=== PATIENT | female | born 1970 | race Caucasian/White ===

== ENCOUNTER 2018-05-28 10:46 | Emergency (ER) | payer OTHER ==
[2018-05-28] MEDS ORDERED: Vancomycin 1 GM 1 GM/250 ML BAG IV STA (11:48)
[2018-05-28] MEDS ORDERED: Cefepime 1 GM in Sodium Chloride 0.9% 50 ML IVPB STA (11:48)
[2018-05-28 11:58] LABS: BASO # 0.1 K/uL (0.0-0.2); BASO % 1.2 % (0.0-2.0); EOS # 0.2 K/uL (0.0-0.7); EOS % 1.9 % (0.0-4.0); HEMOGLOBIN 15.2 g/dL (11.0-16.0); LYMPH # 1.9 K/uL (1.0-4.3); LYMPH % 16.9 % (20.0-40.0); MEAN CELL VOLUME 95.7 fL (81.0-99.0); MEAN CORPUSCULAR HEMOGLOBIN 32.6 pg (27.0-31.0); MEAN CORPUSCULAR HGB CONC 34.1 g/dL (33.0-37.0); MEAN PLATELET VOLUME 8.2 fL (7.2-11.7); MONO # 0.9 K/uL (0.0-0.8); MONO % 7.5 % (0.0-10.0); NEUT # 8.2 K/uL (1.8-7.0); NEUT % 72.5 % (50.0-75.0); RBC 4.64 Mil/uL (3.80-5.20); RED CELL DISTRIBUTION WIDTH 14.2 % (11.5-14.5); WHITE BLOOD COUNT 11.3 K/uL (4.8-10.8)
[2018-05-28 12:11] LABS: ALB/GLOB RATIO 1.5 (1.0-2.1); ALBUMIN 3.7 g/dL (3.5-5.0); ALT/SGPT 10 U/L (9-52); AST/SGOT 14 U/L (14-36); BLOOD UREA NITROGEN 13 mg/dL (7-17); CALCIUM 8.9 mg/dl (8.6-10.4); GFR NON-AFRICAN AMERICAN > 60
[2018-05-28] MEDS ORDERED: Vancomycin 1 GM 1 GM/250 ML BAG IVPB ONE (12:53)
--- NOTE | 2018-05-28 12:57 | RAD ---
Date of service: 05/28/2018 PROCEDURE: Left Index finger radiographs. HISTORY: LEFT 2ND DIGIT SWELLING, PAIN COMPARISON: None available. TECHNIQUE: AP radiograph of the left hand, as well as spot oblique and lateral images of index finger were obtained. FINDINGS: LEFT INDEX FINGER: Unremarkable left 2nd digit without acute displaced fracture identified. Remainder of the left hand (as seen on the AP view) grossly intact. JOINTS: No dislocation. SOFT TISSUES: Soft tissue swelling. No evidence of radiopaque foreign body. OTHER FINDINGS: None. IMPRESSION: Soft tissue swelling. No acute displaced fracture identified. If symptoms persist or if there is continued clinical concern, x-ray follow-up in 7-10 days should be considered.
--- NOTE | 2018-05-28 13:00 | C.PDOC ---
History Of Present Illness Patient presents to ED c/o pain, swelling to left 2nd digit since sustaining a laceration to the area on . She was seen by PMD on Monday, and given antibiotics (Keflex and Bactrim) without improvement. PMHX: psoriasis, COPD - (on prednisone daily). Time Seen by Provider: 05/28/18 11:07 Chief Complaint (Nursing): Finger,Hand,&Wrist History Per: Patient History/Exam Limitations: no limitations Onset/Duration Of Symptoms: Days (5) Current Symptoms Are (Timing): Still Present Quality: "Pain" Severity: Moderate Exacerbating Factor(s): Movement Past Medical History Reviewed: Historical Data, Nursing Documentation, Vital Signs - Medical History PMH: Asthma, COPD Other PMH: psoriasis Family History: States: No Known Family Hx - Social History Hx Alcohol Use: Yes Hx Substance Use: No - Immunization History Hx Tetanus Toxoid Vaccination: Yes Hx Influenza Vaccination: No Hx Pneumococcal Vaccination: No Review Of Systems Constitutional: Negative for: Fever, Chills Cardiovascular: Negative for: Chest Pain, Palpitations Respiratory: Negative for: Cough, Shortness of Breath Gastrointestinal: Negative for: Nausea, Vomiting, Abdominal Pain, Diarrhea Genitourinary: Negative for: Dysuria Musculoskeletal: Positive for: Other (left hand 2nd digit (pain and swelling)) Skin: Negative for: Rash Neurological: Negative for: Weakness, Numbness Physical Exam - Physical Exam Appears: Well, Non-toxic, In Acute Distress (in moderate pain) Skin: Other (see extremity exam) Head: Normacephalic Eye(s): bilateral: Normal Inspection Oral Mucosa: Moist Cardiovascular: Rhythm Regular Respiratory: Normal Breath Sounds, No Rales, No Rhonchi, No Wheezing Gastrointestinal/Abdominal: Normal Exam, Bowel Sounds, Soft, No Tenderness Extremity: No Normal ROM (decreased ability to extend at PIP joint left 2nd digit ), Tenderness ((+) TTP at left 2nd digit), Capillary Refill (< 2 sec all digits), Other (left 2nd digit - mild swelling and erythema at PIP joint, (+) TTP, in mild flexion) Neurological/Psych: Oriented x3, Normal Sensation ED Course And Treatment - Laboratory Results Result Diagrams: 05/28/18 11:54 05/28/18 11:54 Lab Results: Total Bilirubin 0.4 mg/dL (0.2-1.3) 05/28/18 11:54 AST 14 U/L (14-36) 05/28/18 11:54 ALT 10 U/L (9-52) 05/28/18 11:54 Alkaline Phosphatase 72 U/L (38-126) 05/28/18 11:54 Total Protein 6.2 g/dL (6.3-8.3) L 05/28/18 11:54 Albumin 3.7 g/dL (3.5-5.0) 05/28/18 11:54 Globulin 2.5 gm/dL (2.2-3.9) 05/28/18 11:54 Albumin/Globulin Ratio 1.5 (1.0-2.1) 05/28/18 11:54 O2 Sat by Pulse Oximetry: 95 (RA) Pulse Ox Interpretation: Normal Progress Note: Blood work, Xrays ordered and reviewed. Patient given IV Vancomycin and Cefepime. - Physician Consult Information Physician Contacted: Zeynep Martínez Outcome Of Conversation: Discussed patient with PMD, agrees with admission for failed outpatient treatment, left finger infection (possible tenosynovitis). Dr. Berg (hand surgeon) also spoken with and aware of consult. Disposition - Disposition Disposition: HOSPITALIZED Disposition Time: 12:37 Condition: STABLE Forms: [facility] ([place]) - Clinical Impression Clinical Impression: Failure of outpatient treatment, Cellulitis of finger of left hand Decision To Admit - Pt Status Changed To: Hospital Disposition Of: Inpatient - Admit Certification Admit to Inpatient:: After my assessment, the patient will require hospitalization for at least two midnights. This is because of the severity of symptoms shown, intensity of services needed, and/or the medical risk in this patient being treated as an outpatient. - InPatient: Physician Admission Certification: I certify that this patient requires 2 or more midnights of care for the following reason:: see notes - . Bed Request Type: Regular Admitting Physician: Zeynep Martínez Patient Diagnosis: Cellulitis of finger of left hand, Failure of outpatient treatment
[2018-05-28] MEDS ORDERED: Oxycodone/Acetaminophen 5/325 mg Tab PO STA (13:01)
[2018-05-28] MEDS ORDERED: Oxycodone/Acetaminophen 5/325 mg Tab ONE (13:06)
[2018-05-28 13:07] VITALS: BP 127/85; PULSE 67; RESP 18; TEMP 97.7; O2SAT 95
[2018-05-28 15:25] LABS: HCG,QUALITATIVE URINE NEGATIVE (NEGATIVE)
[2018-05-28 15:28] LABS: SQUAMOUS EPITHIAL 9 /hpf (0-5); URINE BACTERIA RARE (<OCC); URINE BILIRUBIN NEGATIVE (NEGATIVE); URINE CLARITY Hazy (Clear); URINE COLOR Yellow (YELLOW); URINE GLUCOSE (UA) NORMAL (Normal); URINE LEUKOCYTE ESTERASE TRACE Leu/uL (Negative); URINE PROTEIN NEGATIVE (NEGATIVE); URINE UROBILINOGEN NORMAL mg/dL (0.2-1.0)
[2018-05-28 15:32] LABS: URINE BLOOD NEGATIVE (NEGATIVE)
--- NOTE | 2018-05-28 15:50 | CP.PCM.CON ---
History of Present Illness - History of Present Illness History of Present Illness: Orthopedic hand consult: Dr. Berg Patient is a 47 y/o RHD female c/o L 2nd digit pain and swelling. She reports cutting the dorsal aspect of the PIP of her left 2nd digit with a knife while cutting raw chicken. She then washed the area and applied dry dressings. She then noticed progressive pain and swelling over the next 4 days radiating to her hand dorsally. She presented to her PMD, Dr. Martínez who recommended that the patient be admitted to [facility] for IV abx after failing oral abx. Currently her pain is moderate, dull and located at the dorsal aspect of her 2nd digit PIP. The pain radiates to her mid hand dorsally. She notes that she was unable to flex her finger and make a fist the last few days, however she is currently able to flex and make a fist. She admits to feeling feverish occasionally although she has never measured it. She currently denies numbness/tingling/CP/SOB/N/V/D/dysuria/melena. PMH: COPD, Psoriasis, migraines, chronic lower back pain PSH: none meds: Otezla, prednisone, percocet prn lower back pain allergy: egg SH: tobacco 1/2 ppd x >15 yrs, ETOH occasionally, marijuana occasionally Review of Systems - Review of Systems All systems: reviewed and no additional remarkable complaints except Review of Systems: as per HPI Past Patient History - Past Medical History & Family History Past Medical History?: Yes - Past Social History Smoking Status: Light Smoker < 10 Cigarettes Daily Alcohol: Occasional Drugs: Cannabis - CARDIAC Hx Cardiac Disorders: No - PULMONARY Hx Respiratory Disorders: Yes Hx Asthma: Yes Hx Chronic Obstructive Pulmonary Disease (COPD): Yes - NEUROLOGICAL Hx Neurological Disorder: No - HEENT Hx HEENT Problems: No - RENAL Hx Chronic Kidney Disease: No - ENDOCRINE/METABOLIC Hx Endocrine Disorders: No - HEMATOLOGICAL/ONCOLOGICAL Hx Blood Disorders: No - INTEGUMENTARY Hx Dermatological Problems: Yes Hx Psoriasis: Yes - MUSCULOSKELETAL/RHEUMATOLOGICAL Hx Musculoskeletal Disorders: No Hx Falls: No - GASTROINTESTINAL Hx Gastrointestinal Disorders: No - GENITOURINARY/GYNECOLOGICAL Hx Genitourinary Disorders: No - PSYCHIATRIC Hx Psychophysiologic Disorder: No Hx Substance Use: No - SURGICAL HISTORY Hx Surgeries: No - ANESTHESIA Hx Anesthesia: No Has any member of the family had a problem w/ anesthesia?: No Meds Allergies/Adverse Reactions: Allergies Allergy/AdvReac Type Severity Reaction Status Date / Time EGG Allergy Verified 05/28/18 17:38 Physical Exam - Constitutional Appears: Well, No Acute Distress - Head Exam Head Exam: ATRAUMATIC, NORMOCEPHALIC - Eye Exam Eye Exam: EOMI, Normal appearance - ENT Exam ENT Exam: Mucous Membranes Moist - Respiratory Exam Respiratory Exam: NORMAL BREATHING PATTERN - GI/Abdominal Exam GI & Abdominal Exam: Soft. absent: Tenderness - Extremities Exam Additional comments: L hand: mild swelling/erythema and warmth to PIP and proximal phalynx of 2nd digit able to flex 2nd DIP/PIP/MCP with pain lesion to dorsal PIP well healed no fluctuant mass or drainage sensation and motor intact MN/UN/RN radial pulse intact R hand: no swelling/erythema/drainage FROM sensation and motor intact MN/UN/RN radial pulse intact - Neurological Exam Neurological exam: Alert, Oriented x3 - Psychiatric Exam Psychiatric exam: Normal Affect, Normal Mood - Skin Skin Exam: Normal Color, Warm Results - Vital Signs Recent Vital Signs: Last Vital Signs Temp 97.7 F 05/28/18 13:07 Pulse 67 05/28/18 13:07 Resp 18 05/28/18 13:07 BP 127/85 05/28/18 13:07 Pulse Ox 95 05/28/18 13:14 - Labs Result Diagrams: 05/28/18 11:54 05/28/18 11:54 Labs: Laboratory Results - last 24 hr 05/28/18 05/28/18 05/28/18 11:54 11:54 15:07 WBC 11.3 H RBC 4.64 Hgb 15.2 Hct 44.4 MCV 95.7 MCH 32.6 H MCHC 34.1 RDW 14.2 Plt Count 226 MPV 8.2 Neut % (Auto) 72.5 Lymph % (Auto) 16.9 L [place] % (Auto) 7.5 Eos % (Auto) 1.9 Baso % (Auto) 1.2 Neut # (Auto) 8.2 H Lymph # (Auto) 1.9 [place] # (Auto) 0.9 H Eos # (Auto) 0.2 Baso # (Auto) 0.1 ESR 1 Sodium 137 Potassium 3.8 Chloride 103 Carbon Dioxide 29 Anion Gap 9 L BUN 13 Creatinine 0.6 L Est GFR ( Amer) > 60 Est GFR (Non-Af Amer) > 60 Random Glucose 106 H Calcium 8.9 Total Bilirubin 0.4 AST 14 ALT 10 Alkaline Phosphatase 72 Total Protein 6.2 L Albumin 3.7 Globulin 2.5 Albumin/Globulin Ratio 1.5 Urine Color Yellow Urine Clarity Hazy Urine pH 7.0 Ur Specific [place] 1.009 Urine Protein Negative Urine Glucose (UA) Normal Urine Ketones Negative Urine Blood Negative Urine Nitrate Negative Urine Bilirubin Negative Urine Urobilinogen Normal Ur Leukocyte Esterase Trace Urine WBC (Auto) 2 Urine RBC (Auto) 1 Ur Squamous Epith Cells 9 H Urine Bacteria Rare Urine HCG, Qual Negative - Impressions Impression: Accession No. : [id number] Patient Name / ID : ALISTAIR CABELLO / [id number] Exam Date : 05/28/2018 11:40:04 ( Approved ) Study Comment : Sex / Age : F / 47Y Creator : Angelika Clark MD Dictator : Angelika Clark MD Ui Developer With Angular Js : Chain Link Fence Installer : Angelika Clark MD Approver2 : Report Date : 05/28/2018 12:53:28 My Comment : Date of service: 05/28/2018 PROCEDURE: Left Index finger radiographs. HISTORY: LEFT 2ND DIGIT SWELLING, PAIN COMPARISON: None available. TECHNIQUE: AP radiograph of the left hand, as well as spot oblique and lateral images of index finger were obtained. FINDINGS: LEFT INDEX FINGER: Unremarkable left 2nd digit without acute displaced fracture identified. Remainder of the left hand (as seen on the AP view) grossly intact. JOINTS: No dislocation. SOFT TISSUES: Soft tissue swelling. No evidence of radiopaque foreign body. OTHER FINDINGS: None. IMPRESSION: Soft tissue swelling. No acute displaced fracture identified. If symptoms persist or if there is continued clinical concern, x-ray follow-up in 7-10 days should be considered. Assessment & Plan (1) Cellulitis of finger of left hand Assessment and Plan: L hand 2nd digit cellulitis -No acute orthopedic intervention recommended -continue IV abx as per medicine/ID -warm soaks QID -above d/w Dr. Berg in agreement Status: Acute
--- NOTE | 2018-05-28 16:01 | CP.PCM.HP ---
History of Present Illness - History of Present Illness History of Present Illness: PGY2 Medicine H+P for Dr. Martínez Past Patient History - Past Medical History & Family History Past Medical History?: Yes - Past Social History Smoking Status: Light Smoker < 10 Cigarettes Daily - CARDIAC Hx Cardiac Disorders: No - PULMONARY Hx Respiratory Disorders: Yes Hx Asthma: Yes Hx Chronic Obstructive Pulmonary Disease (COPD): Yes - NEUROLOGICAL Hx Neurological Disorder: No - HEENT Hx HEENT Problems: No - RENAL Hx Chronic Kidney Disease: No - ENDOCRINE/METABOLIC Hx Endocrine Disorders: No - HEMATOLOGICAL/ONCOLOGICAL Hx Blood Disorders: No - INTEGUMENTARY Hx Dermatological Problems: Yes Hx Psoriasis: Yes - MUSCULOSKELETAL/RHEUMATOLOGICAL Hx Musculoskeletal Disorders: No Hx Falls: No - GASTROINTESTINAL Hx Gastrointestinal Disorders: No - GENITOURINARY/GYNECOLOGICAL Hx Genitourinary Disorders: No - PSYCHIATRIC Hx Psychophysiologic Disorder: No Hx Substance Use: No - SURGICAL HISTORY Hx Surgeries: No - ANESTHESIA Hx Anesthesia: No Has any member of the family had a problem w/ anesthesia?: No Meds Allergies/Adverse Reactions: Allergies Allergy/AdvReac Type Severity Reaction Status Date / Time EGG Allergy Verified 05/28/18 10:59 Results - Vital Signs Recent Vital Signs: Last Vital Signs Temp 97.7 F 05/28/18 13:07 Pulse 67 05/28/18 13:07 Resp 18 05/28/18 13:07 BP 127/85 05/28/18 13:07 Pulse Ox 95 05/28/18 13:14 - Labs Result Diagrams: 05/28/18 11:54 05/28/18 11:54 Labs: Laboratory Results - last 24 hr 05/28/18 05/28/18 05/28/18 11:54 11:54 15:07 WBC 11.3 H RBC 4.64 Hgb 15.2 Hct 44.4 MCV 95.7 MCH 32.6 H MCHC 34.1 RDW 14.2 Plt Count 226 MPV 8.2 Neut % (Auto) 72.5 Lymph % (Auto) 16.9 L [place] % (Auto) 7.5 Eos % (Auto) 1.9 Baso % (Auto) 1.2 Neut # (Auto) 8.2 H Lymph # (Auto) 1.9 [place] # (Auto) 0.9 H Eos # (Auto) 0.2 Baso # (Auto) 0.1 ESR 1 Sodium 137 Potassium 3.8 Chloride 103 Carbon Dioxide 29 Anion Gap 9 L BUN 13 Creatinine 0.6 L Est GFR ( Amer) > 60 Est GFR (Non-Af Amer) > 60 Random Glucose 106 H Calcium 8.9 Total Bilirubin 0.4 AST 14 ALT 10 Alkaline Phosphatase 72 Total Protein 6.2 L Albumin 3.7 Globulin 2.5 Albumin/Globulin Ratio 1.5 Urine Color Yellow Urine Clarity Hazy Urine pH 7.0 Ur Specific [place] 1.009 Urine Protein Negative Urine Glucose (UA) Normal Urine Ketones Negative Urine Blood Negative Urine Nitrate Negative Urine Bilirubin Negative Urine Urobilinogen Normal Ur Leukocyte Esterase Trace Urine WBC (Auto) 2 Urine RBC (Auto) 1 Ur Squamous Epith Cells 9 H Urine Bacteria Rare Urine HCG, Qual Negative
== END 2018-05-28 16:24 | disposition short-term general hospital (02) ==
LOC: C.ER 10:46 → UNDOADMIN 12:37 → C.9E 12:37
DX: L03.012 Cellulitis of left finger (principal)
CPT/HCPCS: 73140; 80053; 81001; 84703; 85025; 85651; 87040; 96365; 96366; 96375; 99283; J0692; J1885; J3370

== ENCOUNTER 2018-05-28 17:15 | Emergency (ER) | payer OTHER ==
[2018-05-28 17:38] VITALS: BMI 20.9
[2018-05-28 17:48] VITALS: RESP 18
--- NOTE | 2018-05-28 18:10 | C.PDOC ---
History Of Present Illness 47 y/o female presents to the ER for evaluation of infection to left hand 2nd digit which has been present for the past 4 days. Patient states that she cut her finger with a meat angeline. Patient reports that she was evaluated by her PMD and she was started on abx. She notes that she was evaluated by her PMD today and her finger had swelling. She was seen in ER earlier today, however she left due to personal reasons. Denies having fever, chills, nausea, and vomiting. Time Seen by Provider: 05/28/18 18:08 Chief Complaint (Nursing): Upper Extremity Problem/Injury History Per: Patient History/Exam Limitations: no limitations Onset/Duration Of Symptoms: Days Current Symptoms Are (Timing): Still Present Severity: Moderate Past Medical History Reviewed: Historical Data, Nursing Documentation, Vital Signs Vital Signs: Last Vital Signs Temp 97.9 F 05/28/18 17:46 Pulse 75 05/28/18 17:46 Resp 18 05/28/18 17:46 BP Pulse Ox 98 05/28/18 17:46 - Medical History PMH: Asthma, COPD Denies: Chronic Kidney Disease Surgical History: No Surg Hx Family History: States: No Known Family Hx - Social History Hx Alcohol Use: No (social) Hx Substance Use: No - Immunization History Hx Tetanus Toxoid Vaccination: Yes Hx Influenza Vaccination: No Hx Pneumococcal Vaccination: No Review Of Systems Except As Marked, All Systems Reviewed And Found Negative. Constitutional: Negative for: Fever, Chills Musculoskeletal: Positive for: Other (left hand 2nd digit swelling) Physical Exam - Physical Exam Appears: Non-toxic, No Acute Distress Skin: Normal Color, Warm, Dry Head: Atraumatic, Normacephalic Eye(s): bilateral: Normal Inspection Nose: Normal Oral Mucosa: Moist Neck: Supple Chest: Symmetrical Extremity: No Normal ROM (left hand 2nd digit), Tenderness (tenderness to left hand 2nd digit), Swelling (swelling to PIP joint of left hand 2nd digit) Neurological/Psych: Oriented x3, Normal Speech ED Course And Treatment O2 Sat by Pulse Oximetry: 98 (RA) Pulse Ox Interpretation: Normal Disposition Discussed With : Zeynep Martínez Counseled Patient/Family Regarding: Diagnosis, Need For Followup - Disposition Disposition: HOSPITALIZED Disposition Time: 18:09 Condition: GUARDED Forms: [facility] ([place]) - POA Present On Arrival: None - Clinical Impression Clinical Impression: Cellulitis of finger of left hand - Scribe Statement The provider has reviewed the documentation as recorded by the Jo Annibfay Sepulveda Provider Attestation: All medical record entries made by the Jo Annibfay were at my direction and personally dictated by me. I have reviewed the chart and agree that the record accurately reflects my personal performance of the history, physical exam, medical decision making, and the department course for this patient. I have also personally directed, reviewed, and agree with the discharge instructions and disposition. Decision To Admit - Pt Status Changed To: Hospital Disposition Of: Observation - . Bed Request Type: Telemetry Admitting Physician: Zeynep Martínez Patient Diagnosis: Cellulitis of finger of left hand
[2018-05-28 20:55] VITALS: PULSE 69; TEMP 97.8
[2018-05-28 23:06] VITALS: BP 141/78; O2SAT 99
== END 2018-05-28 23:07 | disposition left against medical advice (07) ==
LOC: C.ER 17:15 → UNDOADMOB 18:10 → C.9E 18:10 → C.5S 23:30
DX: L03.012 Cellulitis of left finger (principal)

== ENCOUNTER 2018-07-23 07:58 | Inpatient (IN) | payer OTHER ==
[2018-07-23 07:59] VITALS: BMI 20.9
--- NOTE | 2018-07-23 08:46 | C.PDOC ---
History Of Present Illness 47 y/o female with asthma and ezcema comes to ed for treamtent of infected pilar cyst on scalp, recent drainage Time Seen by Provider: 07/23/18 08:20 Chief Complaint (Nursing): Abnormal Skin Integrity History Per: Patient History/Exam Limitations: no limitations Onset/Duration Of Symptoms: Days Current Symptoms Are (Timing): Still Present Severity: Moderate Past Medical History Reviewed: Historical Data, Nursing Documentation, Vital Signs Vital Signs: Last Vital Signs Temp 98.6 F 07/23/18 08:09 Pulse 77 07/23/18 08:09 Resp 18 07/23/18 08:09 BP 93/63 L 07/23/18 08:09 Pulse Ox 99 07/23/18 08:09 - Medical History PMH: Asthma, COPD Denies: Chronic Kidney Disease Surgical History: No Surg Hx Family History: States: No Known Family Hx - Social History Hx Alcohol Use: No (social) Hx Substance Use: No - Immunization History Hx Tetanus Toxoid Vaccination: Yes Hx Influenza Vaccination: No Hx Pneumococcal Vaccination: No Review Of Systems Constitutional: Negative for: Fever, Chills Skin: Positive for: Other (cyst on scalp) Physical Exam - Physical Exam Appears: Non-toxic, No Acute Distress Skin: Warm, Dry, Other (erythematous exudate patches on bilateral posterior arms, ) Head: Atraumatic, Normacephalic, Other (3 cm firm tender cyst on right parietal scalp) Nose: Normal Oral Mucosa: Moist Neck: Supple Chest: Symmetrical Cardiovascular: Rhythm Regular Respiratory: Normal Breath Sounds, No Rales, No Rhonchi, No Wheezing Neurological/Psych: Oriented x3, Normal Speech ED Course And Treatment - Laboratory Results Result Diagrams: 07/23/18 09:18 07/23/18 09:18 O2 Sat by Pulse Oximetry: 99 (RA) Pulse Ox Interpretation: Normal - Other Rad CXR X-Ray: Viewed By Me, Read By Radiologist Interpretation: Date of service: 07/23/2018. HISTORY: Preoperative evaluation. COMPARISON: None available. TECHNIQUE: 1 view obtained. FINDINGS: LUNGS: No active pulmonary disease. PLEURA: No significant pleural effusion identified, no pneumothorax apparent. CARDIOVASCULAR: No aortic atherosclerotic calcification present. Normal cardiac size. No pulmonary vascular congestion. OSSEOUS STRUCTURES: No significant abnormalities. VISUALIZED UPPER ABDOMEN: Normal. OTHER FINDINGS: None. IMPRESSION: No active disease. Medical Decision Making Medical Decision Making: Plan: --Labs --Ancef IV --Morphine IV --Zofran IV Disposition - Disposition - PA / INSPECTION MANAGER / Resident Statement MD/DO has reviewed & agrees with the documentation as recorded. - Scribe Statement The provider has reviewed the documentation as recorded by the Scribe Stefany Sepulveda Provider Attestation All medical record entries made by the Scribe were at my direction and personally dictated by me. I have reviewed the chart and agree that the record accurately reflects my personal performance of the history, physical exam, medical decision making, and the department course for this patient. I have also personally directed, reviewed, and agree with the discharge instructions and disposition.
[2018-07-23 09:22] LABS: BASO # 0.1 K/uL (0.0-0.2); BASO % 0.7 % (0.0-2.0); EOS % 0.2 % (0.0-4.0); HEMOGLOBIN 16.3 g/dL (11.0-16.0); LYMPH # 1.1 K/uL (1.0-4.3); LYMPH % 9.2 % (20.0-40.0); MEAN CELL VOLUME 94.6 fL (81.0-99.0); MEAN CORPUSCULAR HEMOGLOBIN 32.8 pg (27.0-31.0); MEAN CORPUSCULAR HGB CONC 34.6 g/dL (33.0-37.0); MEAN PLATELET VOLUME 8.2 fL (7.2-11.7); MONO # 0.5 K/uL (0.0-0.8); MONO % 3.9 % (0.0-10.0); NEUT # 10.3 K/uL (1.8-7.0); NRBC % 0.1 % (0.0-2.0); PLATELET COUNT 249 K/uL (130-400); RBC 4.96 Mil/uL (3.80-5.20); RED CELL DISTRIBUTION WIDTH 13.8 % (11.5-14.5)
[2018-07-23] MEDS ORDERED: ceFAZolin 1 gm in NS 1 GM/100 ML BAG IVPB ONE (09:35)
[2018-07-23 09:38] LABS: INR 1.1; PROTHROMBIN TIME 11.7 SECONDS (9.7-12.2)
--- NOTE | 2018-07-23 09:38 | RAD ---
Date of service: 07/23/2018 HISTORY: Preoperative evaluation. COMPARISON: None available. TECHNIQUE: 1 view obtained. FINDINGS: LUNGS: No active pulmonary disease. PLEURA: No significant pleural effusion identified, no pneumothorax apparent. CARDIOVASCULAR: No aortic atherosclerotic calcification present. Normal cardiac size. No pulmonary vascular congestion. OSSEOUS STRUCTURES: No significant abnormalities. VISUALIZED UPPER ABDOMEN: Normal. OTHER FINDINGS: None. IMPRESSION: No active disease.
[2018-07-23 10:09] LABS: ALB/GLOB RATIO 1.6 (1.0-2.1); ALBUMIN 4.2 g/dL (3.5-5.0); BLOOD UREA NITROGEN 13 mg/dL (7-17); CALCIUM 9.5 mg/dl (8.6-10.4); GFR NON-AFRICAN AMERICAN > 60
[2018-07-23 10:10] LABS: ALT/SGPT 8 U/L (9-52); AST/SGOT 25 U/L (14-36)
[2018-07-23 11:42] LABS: EOSINOPHIL 1 % (0-4); LYMPHOCYTE 4 % (20-40); MONOCYTE 5 % (0-10); NEUTROPHIL 90 % (50-75); TOTAL CELLS COUNTED 100
[2018-07-23 11:43] LABS: PLATELET ESTIMATE NORMAL (NORMAL)
[2018-07-23] MEDS ORDERED: Bupivacaine 0.25% 20 ML INJ IJ ONE (12:10)
[2018-07-23] MEDS ORDERED: Lidocaine Hydrochloride 0 ML INJ ONE (12:10)
[2018-07-23] MEDS ORDERED: Lidocaine/Epinephrine 1% 1:100000 10 ML IJ ONE (12:25)
[2018-07-23] MEDS ORDERED: Midazolam 2 MG/2 ML VIAL ONE (12:26)
[2018-07-23] MEDS ORDERED: Bacitracin 500 Units/gm Oint Foilpak UD ONE (12:50)
[2018-07-23] MEDS ORDERED: Sodium Chloride 0.9% 1,000 ML IV SCH (13:15)
[2018-07-23] MEDS: Oxycodone/Acetaminophen 5/325 mg Tab PO PRN ×2 (14:00→19:45)
--- NOTE | 2018-07-23 16:01 | CP.PCM.PN ---
Subjective - Date & Time of Evaluation Date of Evaluation: 07/23/18 Time of Evaluation: 16:01 - Subjective Subjective: 47 year old male with a past medical history of migraines, chronic lower back pain, psoriasis, and copd who presents to the hospital for a removal of a cyst. Patient states the growth has been there for the past couple of months and it has been growing as well. Patient also reports increasing headaches in conjunction with the cysts. Patient reports it busting and being seen at [facility]. Patient then saw Dr. Martínez who recommended it to be removed by Dr. Bustillos. Patient denies any fevers, chills, headaches, nausea, vomiting, abdominal, dizziness, or any other complaints. PMH: COPD, Psoriasis, migraines, chronic lower back pain PSH: none meds: Otezla, prednisone, percocet prn lower back pain allergy: egg SH: tobacco 1/2 ppd x >15 yrs, ETOH occasionally, marijuana occasionally Objective - Vital Signs/Intake and Output Vital Signs (last 24 hours): Temp Pulse Resp BP Pulse Ox 97.4 F L 64 15 101/65 96 07/23/18 12:54 07/23/18 14:00 07/23/18 14:00 07/23/18 14:00 07/23/18 14:00 Intake and Output: 07/23/18 07/23/18 06:59 18:59 Intake Total 450 Balance 450 - Medications Medications: Current Medications Docusate Sodium (Colace) 100 mg PO BID ISMAEL Cefazolin Sodium 1,000 mg/ (Sodium Chloride) 50 mls @ 100 mls/hr IVPB Q8H [facility]; Protocol Ondansetron HCl (Zofran Inj) 4 mg IVP Q6 PRN PRN Reason: Nausea/Vomiting Oxycodone/Acetaminophen (Percocet 5/325 Mg Tab) 2 tab PO Q4H PRN PRN Reason: pain Stop: 07/26/18 12:47 Last Admin: 07/23/18 14:00 Dose: 2 tab Pantoprazole Sodium (Protonix Inj) 40 mg IVP DAILY ISMAEL - Labs Labs: 07/23/18 09:18 07/23/18 09:18 PT 11.7 SECONDS (9.7-12.2) 07/23/18 09:27 INR 1.1 07/23/18 09:27 APTT 33 SECONDS (21-34) 07/23/18 09:27 - Head Exam Head Exam: ATRAUMATIC, NORMOCEPHALIC Additional comments: Gauze in place over procedure area. - Eye Exam Eye Exam: EOMI, Normal appearance, PERRL. absent: Periorbital tenderness Pupil Exam: NORMAL ACCOMODATION, PERRL. absent: Irregular, Unequal - ENT Exam ENT Exam: Mucous Membranes Moist, Normal Oropharynx - Respiratory Exam Respiratory Exam: Clear to Ausculation Bilateral, NORMAL BREATHING PATTERN. absent: Chest Wall Tenderness, Prolonged Expiratory Phase, Respiratory Distress - Cardiovascular Exam Cardiovascular Exam: REGULAR RHYTHM, +S1, +S2 - GI/Abdominal Exam GI & Abdominal Exam: Soft, Normal Bowel Sounds. absent: Hyperactive Bowel Sounds - Extremities Exam Extremities Exam: Full ROM, Normal Inspection. absent: Pedal Edema - Back Exam Back Exam: NORMAL INSPECTION. absent: paraspinal tenderness - Neurological Exam Neurological Exam: Alert, Awake, CN II-XII Intact, Oriented x3 - Psychiatric Exam Psychiatric exam: Normal Affect, Normal Mood - Skin Skin Exam: Dry, Intact, Normal Color Assessment and Plan - Assessment and Plan (Free Text) Assessment: 47 year old male with a past medical history of migraines, chronic lower back pain, psoriasis, and copd who presents to the hospital for a removal of a cyst. Plan: 1. S/p removal of cyst of the head Dr. Bustillos completed removal of cyst. Sent out specimen for pathology. Will f/u with results. Medications: Cefazolin 1 gm IVPB Q8 ISMAEL Percocet 2tab q 4 PRN Colace 100mg PO BID 2. COPD Duonebs 3ml RQ6 PRN Prednisone 10mg PO DAILY ppx -Protonix 40mg PO DAILY -NS @100MLS/HR Dispo: Patient expected to be discharged tomorrow morning after completing last dose of ANCEF. Plan discussed with Attending Dr. Martínez. Cachorro Maldonado, PGY2
[2018-07-23] MEDS ORDERED: Albuterol-Ipratrop 3 mg / 0.5 (3 ml) UD INH PRN (16:12)
[2018-07-23] MEDS: Sodium Chloride 0.9% 1,000 ML IV SCH (17:35)
--- NOTE | 2018-07-24 01:18 | OP ---
PROCEDURE DATE: 07/23/2018 PREOPERATIVE DIAGNOSIS: Large mass of the forehead and scalp. POSTOPERATIVE DIAGNOSIS: Large mass of the forehead and scalp. PROCEDURE PERFORMED: Wide and deep excision, large 5 cm mass of forehead and scalp with advancement flap closure. SURGEON: Luke Bustillos MD TYPE OF ANESTHESIA: General. ESTIMATED BLOOD LOSS: 30 mL. POSTOPERATIVE CONDITION: Stable. INDICATIONS FOR SURGERY: This is a 47-year-old female with a history of a right-sided scalp and forehead mass which has been increasing in size and become painful, currently measures 5 x 3 cm and now will undergo wide and deep excision. DESCRIPTION OF PROCEDURE: The patient was taken to the operating room. IV sedation was administered and the scalp was shaved, prepped and draped. Local anesthesia was infiltrated with 0.25% Marcaine and 1% lidocaine with epinephrine. An elliptical incision was made surrounding the mass. It was dissected into the fascia layered muscle and completely removed. Bleeding was controlled using the Bovie. Generous full thickness tissue flaps were raised. Counter incisions were made and advancement flap closure was performed using multiple layers of Monocryl, subcuticular Monocryl, and glue. A total surface area of 36 cm2 was closed. The patient tolerated the procedure well and returned to recovery room in stable condition. Luke Bustillos MD
[2018-07-24] MEDS: Oxycodone/Acetaminophen 5/325 mg Tab PO PRN ×2 (02:44→10:13)
[2018-07-24] MEDS: Sodium Chloride 0.9% 1,000 ML IV SCH ×2 (02:47→12:51)
[2018-07-24 07:44] VITALS: BP 122/76; PULSE 71; RESP 20; TEMP 97.7; O2SAT 97
[2018-07-24 08:38] LABS: BASO # 0.1 K/uL (0.0-0.2); BASO % 0.5 % (0.0-2.0); EOS % 0.1 % (0.0-4.0); LYMPH % 7.8 % (20.0-40.0); MEAN CELL VOLUME 95.4 fL (81.0-99.0); MEAN CORPUSCULAR HEMOGLOBIN 32.4 pg (27.0-31.0); MEAN CORPUSCULAR HGB CONC 33.9 g/dL (33.0-37.0); MEAN PLATELET VOLUME 8.2 fL (7.2-11.7); MONO # 0.6 K/uL (0.0-0.8); MONO % 4.4 % (0.0-10.0); NEUT # 11.1 K/uL (1.8-7.0); NEUT % 87.2 % (50.0-75.0); PLATELET COUNT 237 K/uL (130-400); RBC 4.65 Mil/uL (3.80-5.20); RED CELL DISTRIBUTION WIDTH 13.7 % (11.5-14.5); WHITE BLOOD COUNT 12.7 K/uL (4.8-10.8)
[2018-07-24 08:57] LABS: BLOOD UREA NITROGEN 10 mg/dL (7-17); CALCIUM 9.1 mg/dl (8.6-10.4); GFR NON-AFRICAN AMERICAN > 60
[2018-07-24 09:29] LABS: LYMPHOCYTE 6 % (20-40); MONOCYTE 4 % (0-10); NEUTROPHIL 90 % (50-75); PLATELET ESTIMATE NORMAL (NORMAL); TOTAL CELLS COUNTED 100
[2018-07-24] MEDS ORDERED: Pneumococcal 23-Valent Vaccine IM ONE (10:00)
[2018-07-24] MEDS ORDERED: Influenza Vaccine 60 mcg/0.5 mL SYR (4YR UP) IM ONE (11:36)
== END 2018-07-24 13:16 | disposition home or self-care (01) | DRG 265 ==
LOC: C.ER 07:58 → C.9E 09:00 → OBSVTOIN 12:47 → C.3T 17:02
PROVIDERS: ADMIT Surgery; ATTEND Surgery
PROC: 0HX0XZZ Transfer Scalp Skin, External Approach (ICD-10-PCS; 2018-07-23)
PROC: 0JB00ZZ Excision of Scalp Subcutaneous Tissue and Fascia, Open Approach (ICD-10-PCS; principal; 2018-07-23 12:00)
DX: L72.0 Epidermal cyst (principal); J44.9 Chronic obstructive pulmonary disease, unspecified; L40.9 Psoriasis, unspecified

== ENCOUNTER 2018-08-08 09:35 | Day surgery (SDC) | payer OTHER ==
[2018-08-08] MEDS ORDERED: Lidocaine Hydrochloride 0 ML INJ ONE (12:03)
[2018-08-08] MEDS ORDERED: ceFAZolin 1 gm in NS 2 GM/200 ML BAG IVPB ONE (12:03)
[2018-08-08] MEDS ORDERED: Bupivacaine 0.25% 20 ML INJ IJ ONE (12:03)
[2018-08-08] MEDS ORDERED: Midazolam 2 MG/2 ML VIAL ONE ×2 (12:17→12:22)
[2018-08-08] MEDS ORDERED: HYDROmorphone 0.5 mg/0.5 ml ISec IVP PRN (12:55)
[2018-08-08] MEDS ORDERED: Bacitracin 500 Units/gm Oint Foilpak UD ONE (12:57)
[2018-08-08] MEDS ORDERED: Oxycodone/Acetaminophen 5/325 mg Tab PO PRN (13:13)
[2018-08-08 14:42] VITALS: BP 114/59; PULSE 66; RESP 18; TEMP 98; O2SAT 100
--- NOTE | 2018-08-09 06:32 | OP ---
PROCEDURE DATE: 08/08/2018 PREOPERATIVE DIAGNOSIS: A 3-cm tumor of the left wrist. POSTOPERATIVE DIAGNOSIS: A 3-cm tumor of the left wrist. PROCEDURES PERFORMED: 1. Radical resection, 3-cm tumor of the left wrist. 2. Repair of radial artery. 3. Advancement flap closure (22 cm2). HISTORY OF PRESENT ILLNESS: This is a 47-year-old female who presents with a suspicious tumor in her left wrist, who now will undergo a radical resection. DESCRIPTION OF PROCEDURE: The patient was taken to the operating room. IV sedation was administered. The left wrist and forearm area was prepped and draped. A transverse elliptical incision was drawn out with a 1-cm margin around the tumor and an incision was then made. It was carried down into the fascial muscle and layer of the tendon and the tumor was completely excised and undermined. Bleeding was controlled using a Bovie. There was noted to be bleeding from a defect in the radial artery. The radial artery was dissected free and controlled and the defect was repaired with a single 6-0 Prolene suture. After hemostasis was obtained, the wound was irrigated with copious amounts of saline solution. Full-thickness tissue flaps were raised. Counter incisions were made into the fascia and a 22 cm2 advancement flap closure was performed using multiple layers of Monocryl, subcuticular Monocryl, and glue. The patient tolerated the procedure well and returned to recovery room in stable condition. Luke Bustillos MD
== END 2018-08-08 15:18 | disposition home or self-care (01) ==
LOC: C.SDS 09:35
PROVIDERS: ATTEND Surgery
DX: M67.432 Ganglion, left wrist (principal)
CPT/HCPCS: 25111; 88304; J0690; J1170; J2250; J3010